=== PATIENT | male | born 1955 | race Caucasian/White ===

== ENCOUNTER 2021-07-19 09:58 | Emergency (ER) | payer OTHER ==
[~2021-07-19] VITALS: Ht 180.3 cm; Wt 69.5 kg
[~2021-07-19 09:58] MED LIST: ALBU83IN INH; FLUT1INH3 INH; INCR1INH INH; OXYC1TAB23 PO; PROAAER10 INH
--- NOTE | 2021-07-19 11:34 | REP ---
INDICATION: tachy, SOB COMPARISON: None. TECHNIQUE: Portable AP view of the chest FINDINGS: Large right sided suprahilar mass with adjacent upper lobe bullae is consistent with finding on outside chest CT. The aerated lung bailey are otherwise relatively clear. No effusion. Left hemithorax is normal. Cardiac silhouette is normal. Skeletal structures are intact. IMPRESSION: Large right perihilar/suprahilar mass with adjacent upper lobe bullae. <Electronically signed by Severino Gao > 07/19/21 [id number]
[2021-07-19] MEDS: COMBIVENT RESPIMAT 100-20MCG INHALER 4GM INH SCH ×3 (11:48→13:50)
[2021-07-19 11:59] LABS: BASO # 0.1 10^3/uL (0.0-0.2); BASO % 0.6 % (0.0-1.0); EOS # 0.1 10^3/uL (0.0-0.5); EOS % 0.4 % (0.0-3.0); HEMATOCRIT 45.2 % (42.0-52.0); HEMOGLOBIN 14.3 g/dl (13.5-17.5); LYMPH # 1.7 10^3/uL (1.5-5.0); LYMPH % 8.5 % (24.0-44.0); MEAN CORPUSCULAR HEMOGLOBIN 26.9 pg (27.0-33.0); MEAN CORPUSCULAR HGB CONC 31.6 g/dl (32.0-36.5); MONO # 1.4 10^3/uL (0.0-0.8); MONO % 7.2 % (2.0-8.0); NEUTROPHILS # 16.1 10^3/uL (1.5-8.5); NEUTROPHILS % 82.8 % (36.0-66.0); PLATELET COUNT, AUTOMATED 437 10^3/uL (150-450); RED BLOOD COUNT 5.32 10^6/uL (4.30-6.10); WHITE BLOOD COUNT 19.4 10^3/uL (4.0-10.0)
[2021-07-19 12:25] LABS: ERYTHROCYTE SEDIMENTATION RATE 7 mm/hr (0-20)
[2021-07-19 12:31] LABS: BLOOD UREA NITROGEN 19 MG/DL (7-18); C REACTIVE PROTEIN QUANTITATIV 4.94 MG/DL (0.00-0.30); CALCIUM LEVEL 10.1 MG/DL (8.8-10.2); CARBON DIOXIDE LEVEL 30 MEQ/L (21-32); CHLORIDE LEVEL 96 MEQ/L (98-107); CK-MB VALUE MASS < 1.0 NG/ML (<3.6); CPK CREATINE PHOSPHOKINASE 51 U/L (39-308); CREATININE FOR GFR 0.83 MG/DL (0.70-1.30); GLOMERULAR FILTRATION RATE > 60.0 (>49); GLUCOSE, FASTING 104 MG/DL (70-100); MB/CK RELATIVE INDEX 1.96 (< OR =4); POTASSIUM SERUM 4.7 MEQ/L (3.5-5.1); SODIUM LEVEL 133 MEQ/L (136-145); TROPONIN I < 0.02 NG/ML (< 0.10)
[2021-07-19] MEDS ORDERED: ISOVUE-370 76% 100ML VIAL As Ordered ONE (12:33)
--- NOTE | 2021-07-19 13:08 | REP ---
INDICATION: SOB, tachy, possible CA. COMPARISON: 05/20/2021. TECHNIQUE: CT angiogram chest performed following the intravenous administration of 100 cc of Isovue 370. Sagittal and coronal reconstruction images are performed. FINDINGS: Lungs: There is diffuse mild thickening of the hightower of the bronchioles. There is mild bullous change in the left upper lobe anteriorly. Large bullae are seen superiorly on the right. The large right lung mass has increased in size when compared to the prior study. Margins are lobulated. There appear to be diffuse microcalcifications centrally within the mass. It is located in the posterior right hemithorax, in the superior half. Approximate measurements are 14.4 x 11.3 x 8.2 cm. Mild ill-defined parenchymal opacities are again seen surrounding the mass. There is mild infiltrate in the right upper lobe which has increased since the prior study. Small amount of loculated posterior pleural fluid superiorly has increased. Mediastinum: There is mild subcarinal adenopathy 1.4 cm in short axis. Multiple subcentimeter mediastinal lymph nodes are present. Pulmonary arteries: No evidence of pulmonary embolism. Barbara: Subcentimeter hilar lymph nodes are present. Axilla: No adenopathy. Pleura: Superiorly and posteriorly on the right there is mild pleural fluid/thickening which has mildly increased.. Heart: Not enlarged. Thoracic aorta: There is ectasia of the ascending thoracic aorta 4.1 cm. There is no dissection.. Upper abdominal structures: Unremarkable. Visualized osseous structures: There are degenerative changes of the spine. IMPRESSION: No CT evidence of pulmonary embolism. Right lung mass is increased in size since the prior study of 05/20/2021. There is increased patchy parenchymal opacity in the right upper lobe compared to the prior study which may represent acute infiltrate or atelectatic change. Mild posterior right pleural fluid or thickening superiorly as mildly increased as well. There is mild subcarinal adenopathy. <Electronically signed by Hayden Capone > 07/19/21 [id number]
[2021-07-19] MEDS ORDERED: AUGM875T28 PO (13:50)
[2021-07-19] MEDS ORDERED: DOXY1CAP62 PO (13:50)
[2021-07-19] MEDS ORDERED: DOXYCYCLINE HYCLATE 100MG TABLET PO ONE (13:50)
[2021-07-19] MEDS ORDERED: AUGMENTIN 875 MG TAB PO ONE (13:50)
[2021-07-19 13:59] VITALS: BP 133/75
--- NOTE | 2021-07-19 19:37 | ECGEPIP ---
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
--- NOTE | 2021-07-21 13:17 | ED PDOC ---
Post-Departure Follow-Up cta chest faxed to [facility] for fu Kj Reid MD Jul 21, 2021 13:17
== END 2021-07-19 14:15 | disposition home or self-care (01) ==
LOC: M ED 09:58
DX: J18.9 Pneumonia, unspecified organism (principal); R91.8 Other nonspecific abnormal finding of lung field; J44.9 Chronic obstructive pulmonary disease, unspecified; Z79.899 Other long term (current) drug therapy; F17.210 Nicotine dependence, cigarettes, uncomplicated
CPT/HCPCS: 36415; 36600; 71045; 71275; 80048; 82550; 82553; 82803; 83605; 85025; 85652; 86140; 93005; 94640; 94664; 99284; Q9967